=== PATIENT | male | born 1990 | race African-American/Black ===

== ENCOUNTER 2020-08-14 10:14 | Emergency (ER) | payer OTHER ==
[~2020-08-14] VITALS: Ht 175.3 cm; Wt 127.3 kg
[~2020-08-14 10:14] MED LIST: BENZ2TAB10 PO; CLON-595 PO; DIVA250T4 PO; GUAN1TAB22 PO; HALO10 PO; LITH300C3 PO; PALI39DI IM; TRAZ-252 PO
[2020-08-14] MEDS ORDERED: 0.9% SODIUM CHLORIDE 10 ML SYRINGE IVP PRN (12:30)
[2020-08-14 13:11] LABS: BASOPHILS % (AUTO) 0.4 % (0.0-2.0); EOSINOPHILS % (AUTO) 2.3 % (1.0-6.0); HEMATOCRIT 35.9 % (41-53); HEMOGLOBIN 11.5 g/dL (13.5-17.5); LYMPHOCYTES # (AUTO) 2.4 K/uL (1.0-4.8); LYMPHOCYTES % (AUTO) 25.5 % (22.0-44.0); MEAN CORPUSCULAR HGB CONC 32.1 G/dL (31.0-37.0); MEAN CORPUSCULAR VOLUME 93 fL (80-100); MONOCYTES # (AUTO) 1.4 K/uL (0.1-1.0); MONOCYTES % (AUTO) 14.6 % (2.0-9.0); NEUTROPHILS # (AUTO) 5.3 K/uL (1.8-7.7); NEUTROPHILS % (AUTO) 57.2 % (40.0-70.0); PLATELET COUNT (AUTO) 402 K/uL (150-450); RED BLOOD CELL COUNT(AUTO) 3.85 MIL/uL (4.50-5.90); RED CELL DISTRIBUTION WIDTH 14.1 % (11.5-14.5)
[2020-08-14 13:18] LABS: ANION GAP 5 mmol/L (8-16); CALCIUM, TOTAL 9.3 mg/dL (8.8-10.5); CARBON DIOXIDE 31 mmol/L (22-29); CHLORIDE 103 mmol/L (98-107); CREATININE 0.82 mg/dL (0.60-1.30); GLOMERULAR FILTR. RATE CALC > 60 mL/min (>60); GLUCOSE,RANDOM 88 mg/dL (70-110); SODIUM SERUM 139 mmol/L (136-145); UREA NITROGEN, BLOOD 10 mg/dL (7-18)
[2020-08-14 13:24] LABS: ALANINE AMINOTRANSFERASE 27 U/L (12-78); ALBUMIN 3.3 g/dL (3.4-5.0); ALKALINE PHOSPHATASE 60 U/L (46-116); ASPARTATE AMINOTRANSFERASE 16 U/L (15-37); BILIRUBIN,TOTAL 0.2 mg/dL (0.1-1.0); TOTAL PROTEIN, SERUM 8.1 g/dL (6.4-8.2)
[2020-08-14 15:58] LABS: COVID AG,FIA SOURCE NASOPHARYNGEAL
[2020-08-14] MEDS ORDERED: LORazepam 1 MG TABLET PO ONE (16:15)
[2020-08-14] MEDS ORDERED: PIPERACILLIN/TAZO 3.375 GM/D5W 50 ML IV ONE (16:15)
[2020-08-14 17:43] VITALS: BP 130/68
== END 2020-08-14 18:46 ==
LOC: EMS 10:31
DX: K04.7 Periapical abscess without sinus (principal); M86.9 Osteomyelitis, unspecified; F31.9 Bipolar disorder, unspecified; Z20.822 Contact with and (suspected) exposure to COVID-19
CPT/HCPCS: 36415; 70486; 80053; 83605; 85025; 87426; 96365; 99285; J2543

== ENCOUNTER 2022-05-26 14:45 | Inpatient (IN) | payer MEDICAID, OTHER ==
[~2022-05-26] VITALS: Ht 175.3 cm; Wt 135.8 kg
[~2022-05-26 14:45] MED LIST changes: -BENZ2TAB10 PO; +BENZ2TAB76 PO; -HALO10 PO; +HALO10TA21 PO
[2022-05-26] MEDS ORDERED: BENZ1TAB96 PO (14:57)
[2022-05-26] MEDS ORDERED: RISPC50 IM (14:57)
[2022-05-26] MEDS ORDERED: DOCU-385 PO (14:57)
[2022-05-26] MEDS ORDERED: BISM-171 PO (14:57)
[2022-05-26 15:58] LABS: COVID AG,FIA SOURCE NASOPHARYNGEAL
[2022-05-26 16:01] LABS: BASOPHILS % (AUTO) 0.5 % (0.0-2.0); EOSINOPHILS % (AUTO) 1.4 % (1.0-6.0); HEMATOCRIT 38.2 % (41-53); HEMOGLOBIN 12.3 g/dL (13.5-17.5); LYMPHOCYTES # (AUTO) 3.7 K/uL (1.0-4.8); LYMPHOCYTES % (AUTO) 51.8 % (22.0-44.0); MEAN CORPUSCULAR HEMOGLOBIN 30.1 pg (26.0-34.0); MEAN CORPUSCULAR HGB CONC 32.2 G/dL (31.0-37.0); MEAN CORPUSCULAR VOLUME 93 fL (80-100); MONOCYTES # (AUTO) 0.5 K/uL (0.1-1.0); MONOCYTES % (AUTO) 7.6 % (2.0-9.0); NEUTROPHILS # (AUTO) 2.8 K/uL (1.8-7.7); NEUTROPHILS % (AUTO) 38.7 % (40.0-70.0); PLATELET COUNT (AUTO) 211 K/uL (150-450); RED BLOOD CELL COUNT(AUTO) 4.09 MIL/uL (4.50-5.90); RED CELL DISTRIBUTION WIDTH 13.4 % (11.5-14.5)
[2022-05-26 16:11] LABS: ANION GAP 6 mmol/L (8-16); CALCIUM, TOTAL 9.6 mg/dL (8.8-10.5); CARBON DIOXIDE 32 mmol/L (22-29); CHLORIDE 103 mmol/L (98-107); CREATININE 0.81 mg/dL (0.60-1.30); GLOMERULAR FILTR. RATE CALC > 60 mL/min (>60); GLUCOSE,RANDOM 88 mg/dL (70-110); POTASSIUM 3.9 mmol/L (3.5-5.1); SODIUM SERUM 141 mmol/L (136-145); UREA NITROGEN, BLOOD 7 mg/dL (7-18)
[2022-05-26 16:17] LABS: ALANINE AMINOTRANSFERASE 20 U/L (12-78); ALBUMIN 4.1 g/dL (3.4-5.0); ALKALINE PHOSPHATASE 48 U/L (46-116); ASPARTATE AMINOTRANSFERASE 9 U/L (15-37); BILIRUBIN,TOTAL 0.2 mg/dL (0.1-1.0); TOTAL PROTEIN, SERUM 8.2 g/dL (6.4-8.2); VALPROIC ACID 76 mcg/mL (50-100)
[2022-05-26 16:18] LABS: LITHIUM 0.57 mmol/L (0.60-1.20)
[2022-05-26 16:20] LABS: AMPHET/METH SCREEN,URINE NEGATIVE (NEGATIVE); BARBITURATE SCREEN, URINE NEGATIVE (NEGATIVE); BENZODIAZEPINES SCREEN,URINE NEGATIVE (NEGATIVE); CANNABINOID SCREEN,URINE NEGATIVE (NEGATIVE); COCAINE SCREEN,URINE NEGATIVE (NEGATIVE); METHADONE SCREEN, URINE NEGATIVE (NEGATIVE); OPIATE SCREEN,URINE NEGATIVE (NEGATIVE); PHENCYCLIDINE SCREEN,URINE NEGATIVE (NEGATIVE)
[2022-05-26] MEDS ORDERED: OLANZapine 5 MG TABLET PO ONE (16:45)
[2022-05-26] MEDS ORDERED: LORazepam 1 MG TABLET PO ONE (16:45)
[2022-05-26] MEDS: LORazepam 2 MG TABLET PO PRN (19:52)
[2022-05-26] MEDS: HALOPERIDOL 5 MG TABLET PO PRN (19:52)
[2022-05-27 10:09] VITALS: BP 150/79
[2022-05-27] MEDS ORDERED: PETROLATUM,WHITE 28 GM JELLY TP PRN (13:30)
[2022-05-27] MEDS ORDERED: MAGNESIUM HYDROXIDE SUSPENSION 30 ML UDCUP PO PRN (13:30)
[2022-05-27] MEDS ORDERED: IBUPROFEN 600 MG TABLET PO PRN (13:30)
[2022-05-27] MEDS ORDERED: DOCUSATE SODIUM 100 MG CAPSULE PO PRN (13:30)
[2022-05-27] MEDS ORDERED: LOPERAMIDE HCL 2 MG CAPSULE PO PRN (13:30)
[2022-05-27] MEDS ORDERED: ACETAMINOPHEN 325 MG TABLET PO PRN (13:30)
[2022-05-27] MEDS ORDERED: BACITRACIN 28 GM OINTMENT TP PRN (13:30)
[2022-05-27] MEDS ORDERED: CloNIDine HCL 0.1 MG TABLET PO PRN (13:30)
[2022-05-27] MEDS ORDERED: OMEPRAZOLE 20 MG CAPSULE PO PRN (13:30)
[2022-05-27] MEDS ORDERED: BENZOCAINE/MENTHOL LOZENGE PO PRN (13:30)
[2022-05-27] MEDS ORDERED: MAG HYDROX/AL HYDROX/SIMETH ES 30 ML SUSPENSION UDCUP PO PRN (13:30)
[2022-05-27] MEDS ORDERED: ONDANSETRON HCL 4 MG TABLET PO PRN (13:30)
[2022-05-27] MEDS ORDERED: ALBUTEROL SULFATE HFA 90 MCG/PUFF 8 GM INHALER IH PRN (13:30)
[2022-05-27] MEDS ORDERED: DOCU-350 PO (14:19)
[2022-05-27] MEDS ORDERED: DIVA-112 PO (14:19)
[2022-05-27] MEDS ORDERED: TRAZ-257 PO (14:19)
[2022-05-27] MEDS: HALOPERIDOL 5 MG TABLET PO PRN (16:18)
[2022-05-27] MEDS: LORazepam 2 MG TABLET PO PRN (16:19)
[2022-05-27] MEDS: HALOPERIDOL 5 MG TABLET PO SCH (20:35)
[2022-05-27] MEDS: DIVALPROEX SODIUM 500 MG DR TABLET PO SCH (20:35)
[2022-05-27] MEDS: ClonazePAM 1 MG TABLET PO SCH (20:35)
[2022-05-27] MEDS: LITHIUM CARBONATE 300 MG CAPSULE PO SCH (20:35)
[2022-05-27] MEDS: GuanFACINE HCL 1 MG TABLET PO SCH (20:35)
[2022-05-27] MEDS: BENZTROPINE MESYLATE 2 MG TABLET PO SCH (20:35)
[2022-05-27] MEDS: ZOLPIDEM TARTRATE 10 MG TABLET PO PRN (20:35)
[2022-05-27 21:46] VITALS: BP 138/78
[2022-05-28] MEDS: ClonazePAM 1 MG TABLET PO SCH ×2 (08:08→20:06)
[2022-05-28] MEDS: GuanFACINE HCL 1 MG TABLET PO SCH ×2 (08:08→20:06)
[2022-05-28] MEDS: LITHIUM CARBONATE 300 MG CAPSULE PO SCH ×2 (08:08→20:04)
[2022-05-28] MEDS: LORazepam 2 MG TABLET PO PRN ×3 (08:08→20:17)
[2022-05-28] MEDS: DIVALPROEX SODIUM 500 MG DR TABLET PO SCH ×2 (08:09→20:05)
[2022-05-28 08:22] VITALS: BP 147/81
[2022-05-28] MEDS: HALOPERIDOL 5 MG TABLET PO PRN (16:13)
[2022-05-28 20:05] VITALS: BP 130/86
[2022-05-28] MEDS: BENZTROPINE MESYLATE 2 MG TABLET PO SCH (20:05)
[2022-05-28] MEDS: HALOPERIDOL 5 MG TABLET PO SCH (20:05)
[2022-05-28] MEDS: ZOLPIDEM TARTRATE 10 MG TABLET PO PRN (20:06)
[2022-05-29 08:05] VITALS: BP 147/90
[2022-05-29] MEDS: ClonazePAM 1 MG TABLET PO SCH ×2 (08:45→20:03)
[2022-05-29] MEDS: DIVALPROEX SODIUM 500 MG DR TABLET PO SCH ×2 (08:45→20:03)
[2022-05-29] MEDS: LITHIUM CARBONATE 300 MG CAPSULE PO SCH ×2 (08:45→20:02)
[2022-05-29] MEDS: GuanFACINE HCL 1 MG TABLET PO SCH ×2 (08:45→20:03)
[2022-05-29] MEDS: LORazepam 2 MG TABLET PO PRN ×2 (10:40→20:02)
[2022-05-29] MEDS: HALOPERIDOL 5 MG TABLET PO PRN (10:41)
[2022-05-29 16:11] VITALS: BP 152/87
[2022-05-29] MEDS: ZOLPIDEM TARTRATE 10 MG TABLET PO PRN (20:02)
[2022-05-29] MEDS: BENZTROPINE MESYLATE 2 MG TABLET PO SCH (20:02)
[2022-05-29] MEDS: HALOPERIDOL 5 MG TABLET PO SCH (20:03)
[2022-05-29 21:04] VITALS: BP 152/87
[2022-05-30] MEDS: LITHIUM CARBONATE 300 MG CAPSULE PO SCH ×2 (08:26→20:16)
[2022-05-30] MEDS: DIVALPROEX SODIUM 500 MG DR TABLET PO SCH ×2 (08:26→20:16)
[2022-05-30] MEDS: ClonazePAM 1 MG TABLET PO SCH ×2 (08:26→20:16)
[2022-05-30] MEDS: GuanFACINE HCL 1 MG TABLET PO SCH ×2 (08:26→20:15)
[2022-05-30 09:47] VITALS: BP 150/81
[2022-05-30] MEDS: LORazepam 2 MG TABLET PO PRN (16:07)
[2022-05-30 20:15] VITALS: BP 140/84
[2022-05-30] MEDS: BENZTROPINE MESYLATE 2 MG TABLET PO SCH (20:15)
[2022-05-30] MEDS: HALOPERIDOL 5 MG TABLET PO SCH (20:16)
[2022-05-30] MEDS: ZOLPIDEM TARTRATE 10 MG TABLET PO PRN (20:29)
[2022-05-30] MEDS ORDERED: DiphenhydrAMINE HCL 50 MG/ML VIAL ONE (22:22)
[2022-05-30] MEDS ORDERED: LORazepam 2 MG/ML VIAL ONE (22:22)
[2022-05-30] MEDS ORDERED: HALOPERIDOL LACTATE 5 MG/ML VIAL ONE (22:22)
[2022-05-30] MEDS ORDERED: HALOPERIDOL LACTATE 5 MG/ML VIAL IM ONE (22:30)
[2022-05-30] MEDS ORDERED: DiphenhydrAMINE HCL 50 MG/ML VIAL IM ONE (22:30)
[2022-05-30] MEDS ORDERED: LORazepam 2 MG/ML VIAL IM ONE (22:30)
[2022-05-31 07:55] LABS: CHOL/HDL RATIO 2.5 (4.2-7.3)
[2022-05-31 07:56] LABS: LITHIUM 0.31 mmol/L (0.60-1.20)
[2022-05-31] MEDS: GuanFACINE HCL 1 MG TABLET PO SCH ×2 (08:03→20:04)
[2022-05-31] MEDS: ClonazePAM 1 MG TABLET PO SCH ×2 (08:03→20:04)
[2022-05-31] MEDS: DIVALPROEX SODIUM 500 MG DR TABLET PO SCH ×2 (08:03→20:03)
[2022-05-31] MEDS: LITHIUM CARBONATE 300 MG CAPSULE PO SCH ×2 (08:03→20:04)
[2022-05-31 08:09] VITALS: BP 142/84
[2022-05-31] MEDS: LORazepam 2 MG TABLET PO PRN ×2 (10:48→14:56)
[2022-05-31] MEDS: HALOPERIDOL 5 MG TABLET PO PRN ×2 (10:48→14:56)
[2022-05-31] MEDS: HALOPERIDOL 5 MG TABLET PO SCH (20:03)
[2022-05-31] MEDS: BENZTROPINE MESYLATE 2 MG TABLET PO SCH (20:04)
[2022-05-31 20:07] VITALS: BP 160/82
[2022-06-01] MEDS: ZOLPIDEM TARTRATE 10 MG TABLET PO PRN ×2 (02:16→21:12)
[2022-06-01] MEDS: LITHIUM CARBONATE 300 MG CAPSULE PO SCH ×2 (08:03→20:16)
[2022-06-01] MEDS: GuanFACINE HCL 1 MG TABLET PO SCH ×2 (08:03→20:15)
[2022-06-01] MEDS: DIVALPROEX SODIUM 500 MG DR TABLET PO SCH ×2 (08:03→20:16)
[2022-06-01] MEDS: ClonazePAM 1 MG TABLET PO SCH ×2 (08:03→20:16)
[2022-06-01] MEDS: HALOPERIDOL 5 MG TABLET PO PRN ×3 (08:04→17:18)
[2022-06-01] MEDS: LORazepam 2 MG TABLET PO PRN ×3 (08:04→17:18)
[2022-06-01 08:06] VITALS: BP 133/83
[2022-06-01] MEDS: HALOPERIDOL 5 MG TABLET PO SCH (20:15)
[2022-06-01 20:36] VITALS: BP 139/81
[2022-06-01] MEDS: BENZTROPINE MESYLATE 2 MG TABLET PO SCH (21:12)
[2022-06-01] MEDS ORDERED: LORazepam 2 MG/ML VIAL ONE (22:01)
[2022-06-01] MEDS ORDERED: HALOPERIDOL LACTATE 5 MG/ML VIAL ONE (22:02)
[2022-06-01] MEDS ORDERED: DiphenhydrAMINE HCL 50 MG/ML VIAL ONE (22:02)
[2022-06-01] MEDS ORDERED: DiphenhydrAMINE HCL 50 MG/ML VIAL IM ONE (22:15)
[2022-06-01] MEDS ORDERED: LORazepam 2 MG/ML VIAL IM ONE (22:15)
[2022-06-01] MEDS ORDERED: HALOPERIDOL LACTATE 5 MG/ML VIAL IM ONE (22:15)
[2022-06-02 08:06] VITALS: BP 147/96
[2022-06-02] MEDS: LITHIUM CARBONATE 300 MG CAPSULE PO SCH ×2 (08:22→20:06)
[2022-06-02] MEDS: DIVALPROEX SODIUM 500 MG DR TABLET PO SCH ×2 (08:23→20:06)
[2022-06-02] MEDS: GuanFACINE HCL 1 MG TABLET PO SCH ×2 (08:23→20:23)
[2022-06-02] MEDS: ClonazePAM 1 MG TABLET PO SCH ×2 (08:23→20:07)
[2022-06-02] MEDS ORDERED: CLON-595 PO (09:29)
[2022-06-02] MEDS ORDERED: LITH300C3 PO (09:29)
[2022-06-02] MEDS ORDERED: GUAN1TAB2 PO (09:29)
[2022-06-02] MEDS ORDERED: DIVA-112 PO (09:29)
[2022-06-02] MEDS ORDERED: HALO5TAB23 PO (09:29)
[2022-06-02] MEDS ORDERED: BENZ2TAB76 PO (09:29)
[2022-06-02] MEDS: LORazepam 2 MG TABLET PO PRN ×2 (10:56→19:19)
[2022-06-02] MEDS: HALOPERIDOL 5 MG TABLET PO SCH (20:06)
[2022-06-02] MEDS: BENZTROPINE MESYLATE 2 MG TABLET PO SCH (20:07)
[2022-06-02 20:10] VITALS: BP 138/82
[2022-06-02] MEDS: ZOLPIDEM TARTRATE 10 MG TABLET PO PRN (21:04)
[2022-06-03 06:21] LABS: GLUCOMETER DEV NAME(LOC) POC.BV
[2022-06-03] MEDS: ClonazePAM 1 MG TABLET PO SCH (08:00)
[2022-06-03] MEDS: DIVALPROEX SODIUM 500 MG DR TABLET PO SCH (08:00)
[2022-06-03] MEDS: LITHIUM CARBONATE 300 MG CAPSULE PO SCH (08:00)
[2022-06-03] MEDS: GuanFACINE HCL 1 MG TABLET PO SCH (08:00)
[2022-06-03 09:48] VITALS: BP 142/90
== END 2022-06-03 10:45 | disposition home or self-care (01) | DRG 750 ==
LOC: EMS 15:08 → B3A 05-27 08:37
PROVIDERS: ADMIT Psychiatry & Neurology Psychiatry; ATTEND Psychiatry & Neurology Psychiatry
DX: F25.9 Schizoaffective disorder, unspecified (principal); F79 Unspecified intellectual disabilities; E66.9 Obesity, unspecified; Z68.41 Body mass index [BMI] 40.0-44.9, adult; F41.9 Anxiety disorder, unspecified; G47.00 Insomnia, unspecified; J45.909 Unspecified asthma, uncomplicated; K59.00 Constipation, unspecified; Z20.822 Contact with and (suspected) exposure to COVID-19
CPT/HCPCS: 80053; 80061; 80164; 80178; 80307; 85025; 99285; G0480; J1200; J1630; J2060

== ENCOUNTER 2022-07-13 14:29 | Inpatient (IN) | payer MEDICAID, OTHER ==
[~2022-07-13] VITALS: Ht 172.7 cm; Wt 137.7 kg
[~2022-07-13 14:29] MED LIST changes: +BENZ2TAB71 PO; -BENZ2TAB76 PO; +DIVA-112 PO; -DIVA250T4 PO; +GUAN1TAB2 PO; -HALO10TA21 PO; +HALO5TAB23 PO; -PALI39DI IM; -TRAZ-252 PO
[2022-07-13 15:31] LABS: COVID AG,FIA SOURCE NASOPHARYNGEAL
[2022-07-13 15:52] LABS: BASOPHILS % (AUTO) 0.6 % (0.0-2.0); EOSINOPHILS % (AUTO) 1.1 % (1.0-6.0); HEMATOCRIT 39.7 % (41-53); HEMOGLOBIN 12.8 g/dL (13.5-17.5); LYMPHOCYTES # (AUTO) 3.9 K/uL (1.0-4.8); LYMPHOCYTES % (AUTO) 47.7 % (22.0-44.0); MEAN CORPUSCULAR HEMOGLOBIN 30.7 pg (26.0-34.0); MEAN CORPUSCULAR HGB CONC 32.3 G/dL (31.0-37.0); MEAN CORPUSCULAR VOLUME 95 fL (80-100); MONOCYTES # (AUTO) 0.5 K/uL (0.1-1.0); MONOCYTES % (AUTO) 6.6 % (2.0-9.0); NEUTROPHILS # (AUTO) 3.6 K/uL (1.8-7.7); PLATELET COUNT (AUTO) 239 K/uL (150-450); RED BLOOD CELL COUNT(AUTO) 4.17 MIL/uL (4.50-5.90); RED CELL DISTRIBUTION WIDTH 14.2 % (11.5-14.5)
[2022-07-13 15:55] LABS: AMPHET/METH SCREEN,URINE NEGATIVE (NEGATIVE); BARBITURATE SCREEN, URINE NEGATIVE (NEGATIVE); BENZODIAZEPINES SCREEN,URINE NEGATIVE (NEGATIVE); CANNABINOID SCREEN,URINE NEGATIVE (NEGATIVE); COCAINE SCREEN,URINE NEGATIVE (NEGATIVE); METHADONE SCREEN, URINE NEGATIVE (NEGATIVE); OPIATE SCREEN,URINE NEGATIVE (NEGATIVE); PHENCYCLIDINE SCREEN,URINE NEGATIVE (NEGATIVE)
[2022-07-13 16:06] LABS: LITHIUM 0.47 mmol/L (0.60-1.20)
[2022-07-13 16:12] LABS: ANION GAP 8 mmol/L (8-16); CALCIUM, TOTAL 9.4 mg/dL (8.8-10.5); CARBON DIOXIDE 30 mmol/L (22-29); CHLORIDE 100 mmol/L (98-107); CREATININE 0.76 mg/dL (0.60-1.30); GLOMERULAR FILTR. RATE CALC > 60 mL/min (>60); GLUCOSE,RANDOM 83 mg/dL (70-110); POTASSIUM 3.7 mmol/L (3.5-5.1); SODIUM SERUM 138 mmol/L (136-145)
[2022-07-13 16:20] LABS: ALANINE AMINOTRANSFERASE 13 U/L (12-78); ALKALINE PHOSPHATASE 47 U/L (46-116); ASPARTATE AMINOTRANSFERASE 9 U/L (15-37); BILIRUBIN,TOTAL 0.3 mg/dL (0.1-1.0); TOTAL PROTEIN, SERUM 8.5 g/dL (6.4-8.2); VALPROIC ACID 87 mcg/mL (50-100)
[2022-07-13 23:33] VITALS: BP 141/92
[2022-07-14] MEDS: LORazepam 2 MG TABLET PO PRN ×4 (00:37→21:00)
[2022-07-14] MEDS: ZOLPIDEM TARTRATE 10 MG TABLET PO PRN ×2 (00:37→20:08)
[2022-07-14] MEDS ORDERED: PNEUMOCOCCAL VACCINE POLYVALENT 0.5 ML VIAL [PPSV23] IM. ONE (01:45)
[2022-07-14] MEDS ORDERED: LOPERAMIDE HCL 2 MG CAPSULE PO PRN (05:45)
[2022-07-14] MEDS ORDERED: CloNIDine HCL 0.1 MG TABLET PO PRN (05:45)
[2022-07-14] MEDS ORDERED: DOCUSATE SODIUM 100 MG CAPSULE PO PRN (05:45)
[2022-07-14] MEDS ORDERED: ALBUTEROL SULFATE HFA 90 MCG/PUFF 8 GM INHALER IH PRN (05:45)
[2022-07-14] MEDS ORDERED: OMEPRAZOLE 20 MG CAPSULE PO PRN (05:45)
[2022-07-14] MEDS ORDERED: MAGNESIUM HYDROXIDE SUSPENSION 30 ML UDCUP PO PRN (05:45)
[2022-07-14] MEDS ORDERED: ONDANSETRON HCL 4 MG TABLET PO PRN (05:45)
[2022-07-14] MEDS ORDERED: MAG HYDROX/AL HYDROX/SIMETH ES 30 ML SUSPENSION UDCUP PO PRN (05:45)
[2022-07-14] MEDS ORDERED: IBUPROFEN 600 MG TABLET PO PRN (05:45)
[2022-07-14] MEDS ORDERED: PETROLATUM,WHITE 28 GM JELLY TP PRN (05:45)
[2022-07-14] MEDS ORDERED: ACETAMINOPHEN 325 MG TABLET PO PRN (05:45)
[2022-07-14] MEDS ORDERED: BACITRACIN 28 GM OINTMENT TP PRN (05:45)
[2022-07-14 08:24] VITALS: BP 150/93
[2022-07-14] MEDS: HALOPERIDOL 5 MG TABLET PO PRN ×2 (08:30→16:56)
[2022-07-14] MEDS ORDERED: LORazepam 2 MG/ML VIAL ONE (09:31)
[2022-07-14] MEDS ORDERED: HALOPERIDOL LACTATE 5 MG/ML VIAL ONE (09:32)
[2022-07-14] MEDS ORDERED: DiphenhydrAMINE HCL 50 MG/ML VIAL ONE (09:32)
[2022-07-14] MEDS ORDERED: HALOPERIDOL LACTATE 5 MG/ML VIAL IM ONE (09:45)
[2022-07-14] MEDS ORDERED: LORazepam 2 MG/ML VIAL IM ONE (09:45)
[2022-07-14] MEDS ORDERED: DiphenhydrAMINE HCL 50 MG/ML VIAL IM ONE (09:45)
[2022-07-14] MEDS: ClonazePAM 1 MG TABLET PO SCH (16:55)
[2022-07-14] MEDS: BENZTROPINE MESYLATE 1 MG TABLET PO SCH (16:55)
[2022-07-14 20:03] VITALS: BP 134/83
[2022-07-14] MEDS: LITHIUM CARBONATE 300 MG CAPSULE PO SCH (20:07)
[2022-07-14] MEDS: DIVALPROEX SODIUM 500 MG DR TABLET PO SCH (20:07)
[2022-07-14] MEDS: TraZODone HCL 100 MG TABLET PO SCH (20:08)
[2022-07-14] MEDS: HALOPERIDOL 5 MG TABLET PO SCH (20:08)
[2022-07-14] MEDS: GuanFACINE HCL 1 MG TABLET PO SCH (21:00)
[2022-07-15 08:00] VITALS: BP 150/94
[2022-07-15] MEDS: ClonazePAM 1 MG TABLET PO SCH ×2 (08:02→16:35)
[2022-07-15] MEDS: GuanFACINE HCL 1 MG TABLET PO SCH ×2 (08:02→20:15)
[2022-07-15] MEDS: LITHIUM CARBONATE 300 MG CAPSULE PO SCH ×2 (08:02→20:15)
[2022-07-15] MEDS: BENZTROPINE MESYLATE 1 MG TABLET PO SCH ×2 (08:02→16:35)
[2022-07-15] MEDS: DIVALPROEX SODIUM 500 MG DR TABLET PO SCH ×2 (08:03→20:15)
[2022-07-15] MEDS ORDERED: RisperiDONE MICROSPHERES 50 MG/2 ML SYRINGE IM ONE (09:00)
[2022-07-15] MEDS: LORazepam 2 MG TABLET PO PRN ×2 (16:35→20:38)
[2022-07-15] MEDS: HALOPERIDOL 5 MG TABLET PO PRN (16:35)
[2022-07-15 17:10] VITALS: BP 140/95
[2022-07-15 20:08] VITALS: BP 130/94
[2022-07-15] MEDS: ZOLPIDEM TARTRATE 10 MG TABLET PO PRN (20:15)
[2022-07-15] MEDS: TraZODone HCL 100 MG TABLET PO SCH (20:15)
[2022-07-15] MEDS: HALOPERIDOL 5 MG TABLET PO SCH (20:15)
[2022-07-16 08:00] VITALS: BP 136/88
[2022-07-16] MEDS: ClonazePAM 1 MG TABLET PO SCH ×2 (08:00→16:04)
[2022-07-16] MEDS: GuanFACINE HCL 1 MG TABLET PO SCH ×2 (08:00→20:47)
[2022-07-16] MEDS: DIVALPROEX SODIUM 500 MG DR TABLET PO SCH ×2 (08:00→20:47)
[2022-07-16] MEDS: LITHIUM CARBONATE 300 MG CAPSULE PO SCH ×2 (08:00→20:47)
[2022-07-16] MEDS: BENZTROPINE MESYLATE 1 MG TABLET PO SCH ×2 (08:00→16:04)
[2022-07-16] MEDS ORDERED: TRAZ-257 PO (17:31)
[2022-07-16] MEDS ORDERED: DOCU-350 PO (17:31)
[2022-07-16] MEDS ORDERED: RISPC50 IM (17:31)
[2022-07-16] MEDS: HALOPERIDOL 5 MG TABLET PO SCH (20:48)
[2022-07-16] MEDS: TraZODone HCL 100 MG TABLET PO SCH (20:48)
[2022-07-17 01:30] VITALS: BP 132/79
[2022-07-17] MEDS: GuanFACINE HCL 1 MG TABLET PO SCH ×2 (08:01→20:42)
[2022-07-17] MEDS: ClonazePAM 1 MG TABLET PO SCH ×2 (08:01→16:13)
[2022-07-17] MEDS: LITHIUM CARBONATE 300 MG CAPSULE PO SCH ×2 (08:01→20:41)
[2022-07-17] MEDS: DIVALPROEX SODIUM 500 MG DR TABLET PO SCH ×2 (08:01→20:41)
[2022-07-17] MEDS: BENZTROPINE MESYLATE 1 MG TABLET PO SCH ×2 (08:01→16:13)
[2022-07-17 08:56] VITALS: BP 120/80
[2022-07-17 20:13] VITALS: BP 146/90
[2022-07-17] MEDS: LORazepam 2 MG TABLET PO PRN (20:40)
[2022-07-17] MEDS: TraZODone HCL 100 MG TABLET PO SCH (20:41)
[2022-07-17] MEDS: HALOPERIDOL 5 MG TABLET PO SCH (20:41)
[2022-07-18 08:00] LABS: LITHIUM 0.33 mmol/L (0.60-1.20)
[2022-07-18] MEDS: GuanFACINE HCL 1 MG TABLET PO SCH ×2 (08:01→20:30)
[2022-07-18] MEDS: LITHIUM CARBONATE 300 MG CAPSULE PO SCH ×2 (08:01→20:30)
[2022-07-18] MEDS: BENZTROPINE MESYLATE 1 MG TABLET PO SCH ×2 (08:01→16:09)
[2022-07-18] MEDS: ClonazePAM 1 MG TABLET PO SCH ×2 (08:02→16:10)
[2022-07-18] MEDS: DIVALPROEX SODIUM 500 MG DR TABLET PO SCH ×2 (08:02→20:30)
[2022-07-18 08:12] VITALS: BP 121/95
[2022-07-18] MEDS: LORazepam 2 MG TABLET PO PRN ×2 (16:10→20:30)
[2022-07-18 20:22] VITALS: BP 143/87
[2022-07-18] MEDS: HALOPERIDOL 5 MG TABLET PO SCH (20:30)
[2022-07-18] MEDS: TraZODone HCL 100 MG TABLET PO SCH (20:30)
[2022-07-18] MEDS: ZOLPIDEM TARTRATE 10 MG TABLET PO PRN (20:30)
[2022-07-18] MEDS ORDERED: LITH300C3 PO (20:52)
[2022-07-18] MEDS ORDERED: CLON-595 PO (20:52)
[2022-07-18] MEDS ORDERED: TRAZ-257 PO (20:52)
[2022-07-18] MEDS ORDERED: HALO5TAB23 PO (20:52)
[2022-07-18] MEDS ORDERED: GUAN1TAB2 PO (20:52)
[2022-07-18] MEDS ORDERED: DIVA-112 PO (20:52)
[2022-07-18] MEDS ORDERED: BENZ1TAB84 PO (20:52)
[2022-07-19 08:03] VITALS: BP 133/85
[2022-07-19] MEDS: LITHIUM CARBONATE 300 MG CAPSULE PO SCH (08:07)
[2022-07-19] MEDS: DIVALPROEX SODIUM 500 MG DR TABLET PO SCH (08:07)
[2022-07-19] MEDS: GuanFACINE HCL 1 MG TABLET PO SCH (08:07)
[2022-07-19] MEDS: ClonazePAM 1 MG TABLET PO SCH (08:07)
[2022-07-19] MEDS: BENZTROPINE MESYLATE 1 MG TABLET PO SCH (08:07)
[2022-07-29] MEDS ORDERED: RisperiDONE MICROSPHERES 50 MG/2 ML SYRINGE IM ONE (09:00)
== END 2022-07-19 10:50 | disposition home or self-care (01) | DRG 750 ==
LOC: EMS 14:31 → B3A 18:42
PROVIDERS: ADMIT Psychiatry & Neurology Psychiatry; ATTEND Psychiatry & Neurology Psychiatry
DX: F25.0 Schizoaffective disorder, bipolar type (principal); E66.01 Morbid (severe) obesity due to excess calories; F41.9 Anxiety disorder, unspecified; J45.909 Unspecified asthma, uncomplicated; R62.50 Unspecified lack of expected normal physiological development in childhood; Z20.822 Contact with and (suspected) exposure to COVID-19; G47.00 Insomnia, unspecified; K59.00 Constipation, unspecified; Z88.8 Allergy status to other drugs, medicaments and biological substances; Z79.899 Other long term (current) drug therapy; Z68.42 Body mass index [BMI] 45.0-49.9, adult
CPT/HCPCS: 80053; 80164; 80178; 80307; 85025; 99285; G0480; J1200; J1630; J2060; J2794

== ENCOUNTER 2022-07-26 11:14 | Inpatient (IN) | payer MEDICAID, OTHER ==
[~2022-07-26] VITALS: Ht 175.3 cm; Wt 137.9 kg
[~2022-07-26 11:14] MED LIST changes: +BENZ1TAB84 PO; +DOCU-350 PO; -GUAN1TAB22 PO; +RISPC50 IM; +TRAZ-257 PO
[2022-07-26 12:55] LABS: AMPHET/METH SCREEN,URINE NEGATIVE (NEGATIVE); BARBITURATE SCREEN, URINE NEGATIVE (NEGATIVE); BENZODIAZEPINES SCREEN,URINE NEGATIVE (NEGATIVE); CANNABINOID SCREEN,URINE NEGATIVE (NEGATIVE); COCAINE SCREEN,URINE NEGATIVE (NEGATIVE); METHADONE SCREEN, URINE NEGATIVE (NEGATIVE); OPIATE SCREEN,URINE NEGATIVE (NEGATIVE); PHENCYCLIDINE SCREEN,URINE NEGATIVE (NEGATIVE)
[2022-07-26 13:06] LABS: BASOPHILS % (AUTO) 0.5 % (0.0-2.0); EOSINOPHILS % (AUTO) 1.5 % (1.0-6.0); HEMATOCRIT 38.1 % (41-53); HEMOGLOBIN 12.4 g/dL (13.5-17.5); LYMPHOCYTES # (AUTO) 2.7 K/uL (1.0-4.8); LYMPHOCYTES % (AUTO) 33.7 % (22.0-44.0); MEAN CORPUSCULAR HEMOGLOBIN 31.1 pg (26.0-34.0); MEAN CORPUSCULAR HGB CONC 32.7 G/dL (31.0-37.0); MEAN CORPUSCULAR VOLUME 95 fL (80-100); MONOCYTES # (AUTO) 0.6 K/uL (0.1-1.0); MONOCYTES % (AUTO) 7.1 % (2.0-9.0); NEUTROPHILS # (AUTO) 4.5 K/uL (1.8-7.7); NEUTROPHILS % (AUTO) 57.2 % (40.0-70.0); PLATELET COUNT (AUTO) 216 K/uL (150-450); RED CELL DISTRIBUTION WIDTH 13.8 % (11.5-14.5)
[2022-07-26 13:17] LABS: ANION GAP 3 mmol/L (8-16); CALCIUM, TOTAL 9.9 mg/dL (8.8-10.5); CARBON DIOXIDE 35 mmol/L (22-29); CHLORIDE 103 mmol/L (98-107); CREATININE 0.86 mg/dL (0.60-1.30); GLOMERULAR FILTR. RATE CALC > 60 mL/min (>60); GLUCOSE,RANDOM 87 mg/dL (70-110); POTASSIUM 4.1 mmol/L (3.5-5.1); SODIUM SERUM 141 mmol/L (136-145)
[2022-07-26 13:23] LABS: ALANINE AMINOTRANSFERASE 15 U/L (12-78); ALKALINE PHOSPHATASE 49 U/L (46-116); ASPARTATE AMINOTRANSFERASE 10 U/L (15-37); BILIRUBIN,TOTAL 0.2 mg/dL (0.1-1.0); TOTAL PROTEIN, SERUM 8.2 g/dL (6.4-8.2)
[2022-07-26 14:34] LABS: COVID AG,FIA SOURCE NASAL SWAB
[2022-07-26] MEDS ORDERED: HALOPERIDOL 5 MG TABLET PO PRN (16:45)
[2022-07-26] MEDS ORDERED: HALO5TAB2 PO (17:06)
[2022-07-26] MEDS: HALOPERIDOL 5 MG TABLET PO SCH (21:30)
[2022-07-26] MEDS: LITHIUM CARBONATE 300 MG CAPSULE PO SCH (21:30)
[2022-07-26] MEDS: ClonazePAM 1 MG TABLET PO SCH (21:31)
[2022-07-26] MEDS: BENZTROPINE MESYLATE 2 MG TABLET PO SCH (21:31)
[2022-07-26] MEDS: DIVALPROEX SODIUM 500 MG DR TABLET PO SCH (21:31)
[2022-07-27] MEDS: ClonazePAM 1 MG TABLET PO SCH ×2 (09:25→20:31)
[2022-07-27] MEDS: DIVALPROEX SODIUM 500 MG DR TABLET PO SCH ×2 (09:25→20:30)
[2022-07-27] MEDS: LITHIUM CARBONATE 300 MG CAPSULE PO SCH ×2 (09:25→20:31)
[2022-07-27] MEDS: LORazepam 2 MG TABLET PO PRN (10:08)
[2022-07-27 12:14] VITALS: BP 144/91; PULSE 83; RESP 18; TEMP 97.6; O2SAT 96
[2022-07-27] MEDS ORDERED: PNEUMOCOCCAL VACCINE POLYVALENT 0.5 ML VIAL [PPSV23] IM. ONE (12:30)
[2022-07-27] MEDS ORDERED: DOCUSATE SODIUM 100 MG CAPSULE PO PRN (19:00)
[2022-07-27] MEDS ORDERED: OMEPRAZOLE 20 MG CAPSULE PO PRN (19:00)
[2022-07-27] MEDS ORDERED: PETROLATUM,WHITE 28 GM JELLY TP PRN (19:00)
[2022-07-27] MEDS ORDERED: ALBUTEROL SULFATE HFA 90 MCG/PUFF 8 GM INHALER IH PRN (19:00)
[2022-07-27] MEDS ORDERED: CloNIDine HCL 0.1 MG TABLET PO PRN (19:00)
[2022-07-27] MEDS ORDERED: IBUPROFEN 600 MG TABLET PO PRN (19:00)
[2022-07-27] MEDS ORDERED: LOPERAMIDE HCL 2 MG CAPSULE PO PRN (19:00)
[2022-07-27] MEDS ORDERED: MAGNESIUM HYDROXIDE SUSPENSION 30 ML UDCUP PO PRN (19:00)
[2022-07-27] MEDS ORDERED: ONDANSETRON HCL 4 MG TABLET PO PRN (19:00)
[2022-07-27] MEDS ORDERED: ACETAMINOPHEN 325 MG TABLET PO PRN (19:00)
[2022-07-27] MEDS ORDERED: BACITRACIN 28 GM OINTMENT TP PRN (19:00)
[2022-07-27] MEDS ORDERED: MAG HYDROX/AL HYDROX/SIMETH ES 30 ML SUSPENSION UDCUP PO PRN (19:00)
[2022-07-27] MEDS: HALOPERIDOL 5 MG TABLET PO SCH (20:30)
[2022-07-27] MEDS: BENZTROPINE MESYLATE 2 MG TABLET PO SCH (20:31)
[2022-07-27 21:09] VITALS: BP 144/87; PULSE 93; RESP 20; TEMP 97.9; O2SAT 94
[2022-07-27] MEDS: ZOLPIDEM TARTRATE 10 MG TABLET PO PRN (21:38)
[2022-07-28] MEDS: DIVALPROEX SODIUM 500 MG DR TABLET PO SCH ×2 (08:17→20:26)
[2022-07-28] MEDS: ClonazePAM 1 MG TABLET PO SCH ×2 (08:17→20:27)
[2022-07-28 08:18] VITALS: BP 144/81; PULSE 83; RESP 19; TEMP 97.5; O2SAT 98
[2022-07-28] MEDS: LITHIUM CARBONATE 300 MG CAPSULE PO SCH ×2 (08:18→20:26)
[2022-07-28 20:22] VITALS: BP 141/82; PULSE 62; RESP 18; TEMP 97.1; O2SAT 97
[2022-07-28] MEDS: HALOPERIDOL 5 MG TABLET PO SCH (20:26)
[2022-07-28] MEDS: BENZTROPINE MESYLATE 2 MG TABLET PO SCH (20:28)
[2022-07-28] MEDS: ZOLPIDEM TARTRATE 10 MG TABLET PO PRN (21:55)
[2022-07-29] MEDS ORDERED: RisperiDONE MICROSPHERES 50 MG/2 ML SYRINGE IM SCH (09:00)
[2022-07-29] MEDS: DIVALPROEX SODIUM 500 MG DR TABLET PO SCH ×2 (09:07→20:32)
[2022-07-29] MEDS: LITHIUM CARBONATE 300 MG CAPSULE PO SCH ×2 (09:07→20:33)
[2022-07-29] MEDS: ClonazePAM 1 MG TABLET PO SCH ×2 (09:07→20:33)
[2022-07-29 10:01] VITALS: BP 141/85; PULSE 75; RESP 16; TEMP 97.2; O2SAT 95
[2022-07-29] MEDS: BENZTROPINE MESYLATE 2 MG TABLET PO SCH (20:32)
[2022-07-29] MEDS: HALOPERIDOL 5 MG TABLET PO SCH (20:33)
[2022-07-29 20:56] VITALS: BP 119/80; PULSE 101; RESP 18; TEMP 97.7; O2SAT 97
[2022-07-29] MEDS: ZOLPIDEM TARTRATE 10 MG TABLET PO PRN (21:56)
[2022-07-30] MEDS: LITHIUM CARBONATE 300 MG CAPSULE PO SCH ×2 (08:13→20:54)
[2022-07-30] MEDS: ClonazePAM 1 MG TABLET PO SCH ×2 (08:13→20:54)
[2022-07-30] MEDS: DIVALPROEX SODIUM 500 MG DR TABLET PO SCH ×2 (08:13→20:53)
[2022-07-30 09:06] VITALS: BP 149/104; PULSE 81; RESP 18; TEMP 97.5; O2SAT 98
[2022-07-30] MEDS: LORazepam 2 MG TABLET PO PRN (12:48)
[2022-07-30 20:02] VITALS: BP 154/100; PULSE 93; RESP 18; TEMP 97.6; O2SAT 95
[2022-07-30] MEDS: BENZTROPINE MESYLATE 2 MG TABLET PO SCH (20:53)
[2022-07-30] MEDS: HALOPERIDOL 5 MG TABLET PO SCH (20:54)
[2022-07-31 07:11] LABS: LITHIUM 0.45 mmol/L (0.60-1.20)
[2022-07-31] MEDS: ClonazePAM 1 MG TABLET PO SCH ×2 (07:52→20:20)
[2022-07-31] MEDS: LITHIUM CARBONATE 300 MG CAPSULE PO SCH ×2 (07:52→20:19)
[2022-07-31] MEDS: DIVALPROEX SODIUM 500 MG DR TABLET PO SCH ×2 (07:53→20:20)
[2022-07-31 08:07] VITALS: BP 124/76; PULSE 85; RESP 18; TEMP 98.2; O2SAT 93
[2022-07-31 20:04] VITALS: BP 136/67; PULSE 91; RESP 17; TEMP 97.3; O2SAT 95
[2022-07-31] MEDS: HALOPERIDOL 5 MG TABLET PO SCH (20:20)
[2022-07-31] MEDS: BENZTROPINE MESYLATE 2 MG TABLET PO SCH (20:20)
[2022-07-31] MEDS: LORazepam 2 MG TABLET PO PRN (22:15)
[2022-07-31] MEDS: ZOLPIDEM TARTRATE 10 MG TABLET PO PRN (22:15)
[2022-08-01 08:05] VITALS: BP 127/84; PULSE 84; RESP 17; TEMP 97.7; O2SAT 96
[2022-08-01] MEDS: ClonazePAM 1 MG TABLET PO SCH ×2 (08:17→20:37)
[2022-08-01] MEDS: LITHIUM CARBONATE 300 MG CAPSULE PO SCH ×3 (08:18→17:08)
[2022-08-01] MEDS: DIVALPROEX SODIUM 500 MG DR TABLET PO SCH ×2 (08:18→20:37)
[2022-08-01 20:26] VITALS: RESP 18
[2022-08-01] MEDS: HALOPERIDOL 5 MG TABLET PO SCH (20:36)
[2022-08-01] MEDS: BENZTROPINE MESYLATE 2 MG TABLET PO SCH (20:37)
[2022-08-01] MEDS: LORazepam 2 MG TABLET PO PRN (20:46)
[2022-08-01] MEDS: ZOLPIDEM TARTRATE 10 MG TABLET PO PRN (23:17)
[2022-08-02 08:04] VITALS: BP 138/89; PULSE 88; RESP 19; TEMP 97.6; O2SAT 96
[2022-08-02] MEDS: LITHIUM CARBONATE 300 MG CAPSULE PO SCH ×3 (08:23→16:25)
[2022-08-02] MEDS: DIVALPROEX SODIUM 500 MG DR TABLET PO SCH ×2 (08:23→20:45)
[2022-08-02] MEDS: ClonazePAM 1 MG TABLET PO SCH ×2 (08:23→20:45)
[2022-08-02] MEDS: HALOPERIDOL 5 MG TABLET PO SCH (20:44)
[2022-08-02] MEDS: BENZTROPINE MESYLATE 2 MG TABLET PO SCH (20:44)
[2022-08-02 22:04] VITALS: RESP 18
[2022-08-02] MEDS: LORazepam 2 MG TABLET PO PRN (22:22)
[2022-08-02] MEDS: ZOLPIDEM TARTRATE 10 MG TABLET PO PRN (22:22)
[2022-08-03] MEDS: LITHIUM CARBONATE 300 MG CAPSULE PO SCH ×3 (07:49→16:43)
[2022-08-03] MEDS: DIVALPROEX SODIUM 500 MG DR TABLET PO SCH (07:49)
[2022-08-03] MEDS: ClonazePAM 1 MG TABLET PO SCH (07:49)
[2022-08-03 08:01] VITALS: BP 139/77; PULSE 90; RESP 17; TEMP 98
[2022-08-03 08:20] VITALS: BP 139/77; PULSE 90; RESP 17; TEMP 98; O2SAT 95
== END 2022-08-03 14:50 | disposition home or self-care (01) | DRG 750 ==
LOC: EMS 11:18 → 3EC 07-27 11:03
PROVIDERS: ADMIT Psychiatry & Neurology Psychiatry; ATTEND Psychiatry & Neurology Psychiatry
DX: F25.0 Schizoaffective disorder, bipolar type (principal); F79 Unspecified intellectual disabilities; E66.01 Morbid (severe) obesity due to excess calories; F41.9 Anxiety disorder, unspecified; Z20.822 Contact with and (suspected) exposure to COVID-19; G47.00 Insomnia, unspecified; J45.909 Unspecified asthma, uncomplicated; K59.00 Constipation, unspecified; Z79.899 Other long term (current) drug therapy; Z88.8 Allergy status to other drugs, medicaments and biological substances; Z68.41 Body mass index [BMI] 40.0-44.9, adult
CPT/HCPCS: 80053; 80164; 80178; 80307; 85025; 99285; G0480; J2794

== ENCOUNTER 2022-09-12 10:56 | Emergency (ER) | payer MEDICAID, OTHER ==
[~2022-09-12] VITALS: Ht 175.3 cm; Wt 137.9 kg
[~2022-09-12 10:56] MED LIST changes: -BENZ1TAB84 PO; -BENZ2TAB71 PO; -DIVA-112 PO; -DOCU-350 PO; -GUAN1TAB2 PO; -HALO5TAB23 PO; -LITH300C3 PO; -RISPC50 IM; -TRAZ-257 PO
[2022-09-12] MEDS ORDERED: LITH300C3 PO (10:59)
[2022-09-12] MEDS ORDERED: BENZ1TAB84 PO (10:59)
[2022-09-12] MEDS ORDERED: DIVA-112 PO (10:59)
[2022-09-12 11:03] VITALS: TEMP 98.2
[2022-09-12 11:14] VITALS: BP 132/79; PULSE 87; RESP 16
[2022-09-12 11:45] LABS: BASOPHILS % (AUTO) 0.4 % (0.0-2.0); EOSINOPHILS % (AUTO) 1.5 % (1.0-6.0); HEMATOCRIT 40.9 % (41-53); LYMPHOCYTES # (AUTO) 3.7 K/uL (1.0-4.8); LYMPHOCYTES % (AUTO) 48.6 % (22.0-44.0); MEAN CORPUSCULAR HGB CONC 31.7 G/dL (31.0-37.0); MEAN CORPUSCULAR VOLUME 95 fL (80-100); MONOCYTES # (AUTO) 0.5 K/uL (0.1-1.0); MONOCYTES % (AUTO) 6.3 % (2.0-9.0); NEUTROPHILS # (AUTO) 3.3 K/uL (1.8-7.7); NEUTROPHILS % (AUTO) 43.2 % (40.0-70.0); PLATELET COUNT (AUTO) 226 K/uL (150-450); RED BLOOD CELL COUNT(AUTO) 4.32 MIL/uL (4.50-5.90); RED CELL DISTRIBUTION WIDTH 13.7 % (11.5-14.5)
[2022-09-12 11:57] LABS: ANION GAP 9 mmol/L (8-16); CALCIUM, TOTAL 9.4 mg/dL (8.8-10.5); CARBON DIOXIDE 30 mmol/L (22-29); CHLORIDE 101 mmol/L (98-107); CREATININE 0.87 mg/dL (0.60-1.30); GLOMERULAR FILTR. RATE CALC > 60 mL/min (>60); GLUCOSE,RANDOM 100 mg/dL (70-110); POTASSIUM 3.8 mmol/L (3.5-5.1); SODIUM SERUM 140 mmol/L (136-145)
[2022-09-12 12:06] LABS: ALANINE AMINOTRANSFERASE 15 U/L (12-78); ALBUMIN 3.9 g/dL (3.4-5.0); ALKALINE PHOSPHATASE 45 U/L (46-116); ASPARTATE AMINOTRANSFERASE 8 U/L (15-37); BILIRUBIN,TOTAL 0.3 mg/dL (0.1-1.0); TOTAL PROTEIN, SERUM 8.3 g/dL (6.4-8.2)
[2022-09-12] MEDS ORDERED: GUAN1TAB2 PO (14:25)
[2022-09-12] MEDS ORDERED: RISPC50 IM (14:25)
[2022-09-12] MEDS ORDERED: DOCU-352 PO (14:25)
[2022-09-12] MEDS ORDERED: TRAZ-257 PO (14:25)
[2022-09-12] MEDS ORDERED: HALO5TAB2 PO (14:25)
[2022-09-12] MEDS ORDERED: CLON1TAB12 PO (14:25)
== END 2022-09-12 13:17 | disposition home or self-care (01) ==
LOC: EMS 10:58
DX: F25.0 Schizoaffective disorder, bipolar type (principal); Z88.8 Allergy status to other drugs, medicaments and biological substances
CPT/HCPCS: 99283; 80053; 85025; G0480

== ENCOUNTER 2022-09-12 13:47 | Inpatient (IN) | payer MEDICAID, OTHER ==
[~2022-09-12] VITALS: Ht 175.3 cm; Wt 139.8 kg
[~2022-09-12 13:47] MED LIST changes: +BENZ1TAB84 PO; +DIVA-112 PO; +LITH300C3 PO
[2022-09-12] MEDS ORDERED: HALO5TAB2 PO (14:25)
[2022-09-12] MEDS ORDERED: DOCU-352 PO (14:25)
[2022-09-12] MEDS ORDERED: RISPC50 IM (14:25)
[2022-09-12] MEDS ORDERED: CLON1TAB12 PO (14:25)
[2022-09-12] MEDS ORDERED: TRAZ-257 PO (14:25)
[2022-09-12] MEDS ORDERED: GUAN1TAB2 PO (14:25)
[2022-09-12 15:32] LABS: BASOPHILS % (AUTO) 0.5 % (0.0-2.0); EOSINOPHILS % (AUTO) 1.3 % (1.0-6.0); HEMATOCRIT 40.1 % (41-53); LYMPHOCYTES # (AUTO) 3.4 K/uL (1.0-4.8); LYMPHOCYTES % (AUTO) 42.1 % (22.0-44.0); MEAN CORPUSCULAR HEMOGLOBIN 30.7 pg (26.0-34.0); MEAN CORPUSCULAR HGB CONC 32.3 G/dL (31.0-37.0); MEAN CORPUSCULAR VOLUME 95 fL (80-100); MONOCYTES # (AUTO) 0.6 K/uL (0.1-1.0); MONOCYTES % (AUTO) 7.2 % (2.0-9.0); NEUTROPHILS # (AUTO) 3.9 K/uL (1.8-7.7); NEUTROPHILS % (AUTO) 48.9 % (40.0-70.0); PLATELET COUNT (AUTO) 230 K/uL (150-450); RED BLOOD CELL COUNT(AUTO) 4.22 MIL/uL (4.50-5.90); RED CELL DISTRIBUTION WIDTH 13.4 % (11.5-14.5)
[2022-09-12 15:33] LABS: COVID AG,FIA SOURCE NASOPHARYNGEAL
[2022-09-12 15:39] LABS: ANION GAP 10 mmol/L (8-16); CALCIUM, TOTAL 9.6 mg/dL (8.8-10.5); CARBON DIOXIDE 30 mmol/L (22-29); CHLORIDE 101 mmol/L (98-107); CREATININE 0.97 mg/dL (0.60-1.30); GLOMERULAR FILTR. RATE CALC > 60 mL/min (>60); GLUCOSE,RANDOM 110 mg/dL (70-110); SODIUM SERUM 141 mmol/L (136-145)
[2022-09-12 15:44] LABS: APPEARANCE,URINE CLEAR (CLEAR); BILIRUBIN,URINE NEGATIVE (NEGATIVE); GLUCOSE, URINE (UA) NEGATIVE (NEGATIVE); KETONES,URINE NEGATIVE (NEGATIVE); LEUKOCYTE ESTERASE ,URINE NEGATIVE (NEGATIVE); NITRATE,URINE NEGATIVE (NEGATIVE); OCCULT BLOOD,URINE NEGATIVE (NEGATIVE); PROTEIN,URINE TRACE mg/dL (NEGATIVE); SPECIFIC GRAVITIY, URINE 1.016 (1.003-1.030); UROBILINOGEN,URINE <=1.0 mg/dL (<=1.0)
[2022-09-12 15:45] LABS: ALANINE AMINOTRANSFERASE 15 U/L (12-78); ALBUMIN 3.9 g/dL (3.4-5.0); ALKALINE PHOSPHATASE 47 U/L (46-116); ASPARTATE AMINOTRANSFERASE 8 U/L (15-37); BILIRUBIN,TOTAL 0.2 mg/dL (0.1-1.0); TOTAL PROTEIN, SERUM 8.3 g/dL (6.4-8.2)
[2022-09-12 15:47] LABS: AMPHET/METH SCREEN,URINE NEGATIVE (NEGATIVE); BARBITURATE SCREEN, URINE NEGATIVE (NEGATIVE); BENZODIAZEPINES SCREEN,URINE NEGATIVE (NEGATIVE); CANNABINOID SCREEN,URINE NEGATIVE (NEGATIVE); COCAINE SCREEN,URINE NEGATIVE (NEGATIVE); METHADONE SCREEN, URINE NEGATIVE (NEGATIVE); OPIATE SCREEN,URINE NEGATIVE (NEGATIVE); PHENCYCLIDINE SCREEN,URINE NEGATIVE (NEGATIVE)
[2022-09-12 18:09] VITALS: BP 132/89; PULSE 79; RESP 18; TEMP 98.4; O2SAT 98
[2022-09-12] MEDS: ZOLPIDEM TARTRATE 10 MG TABLET PO PRN (20:08)
[2022-09-12 20:11] VITALS: BP 140/82; PULSE 86; RESP 18; TEMP 98.2; O2SAT 98
[2022-09-13] MEDS ORDERED: ONDANSETRON HCL 4 MG TABLET PO PRN (05:15)
[2022-09-13] MEDS ORDERED: OMEPRAZOLE 20 MG CAPSULE PO PRN (05:15)
[2022-09-13] MEDS ORDERED: MAGNESIUM HYDROXIDE SUSPENSION 30 ML UDCUP PO PRN (05:15)
[2022-09-13] MEDS ORDERED: DOCUSATE SODIUM 100 MG CAPSULE PO PRN (05:15)
[2022-09-13] MEDS ORDERED: CloNIDine HCL 0.1 MG TABLET PO PRN (05:15)
[2022-09-13] MEDS ORDERED: ACETAMINOPHEN 325 MG TABLET PO PRN (05:15)
[2022-09-13] MEDS ORDERED: BENZOCAINE/MENTHOL LOZENGE PO PRN (05:15)
[2022-09-13] MEDS ORDERED: ALBUTEROL SULFATE HFA 90 MCG/PUFF 8 GM INHALER IH PRN (05:15)
[2022-09-13] MEDS ORDERED: BACITRACIN 28 GM OINTMENT TP PRN (05:15)
[2022-09-13] MEDS ORDERED: LOPERAMIDE HCL 2 MG CAPSULE PO PRN (05:15)
[2022-09-13] MEDS ORDERED: PETROLATUM,WHITE 28 GM JELLY TP PRN (05:15)
[2022-09-13] MEDS ORDERED: MAG HYDROX/AL HYDROX/SIMETH ES 30 ML SUSPENSION UDCUP PO PRN (05:15)
[2022-09-13] MEDS ORDERED: IBUPROFEN 600 MG TABLET PO PRN (05:15)
[2022-09-13] MEDS: HALOPERIDOL 5 MG TABLET PO PRN (07:53)
[2022-09-13] MEDS: LORazepam 2 MG TABLET PO PRN (07:53)
[2022-09-13 08:13] VITALS: BP 139/85; PULSE 84; RESP 18; TEMP 98.3; O2SAT 95
[2022-09-13] MEDS ORDERED: RisperiDONE MICROSPHERES 50 MG/2 ML SYRINGE IM ONE (08:45)
[2022-09-13] MEDS: DIVALPROEX SODIUM 500 MG ER TABLET PO SCH ×2 (08:58→16:05)
[2022-09-13] MEDS: ClonazePAM 1 MG TABLET PO SCH ×2 (08:58→16:05)
[2022-09-13] MEDS: BENZTROPINE MESYLATE 1 MG TABLET PO SCH ×2 (08:58→16:05)
[2022-09-13] MEDS: GuanFACINE HCL 1 MG TABLET PO SCH ×2 (08:58→16:04)
[2022-09-13] MEDS: LITHIUM CARBONATE 300 MG CAPSULE PO SCH ×2 (08:58→16:05)
[2022-09-13] MEDS ORDERED: RisperiDONE MICROSPHERES 50 MG/2 ML SYRINGE IM SCH (09:00)
[2022-09-13] MEDS: ZOLPIDEM TARTRATE 10 MG TABLET PO PRN ×2 (19:58→21:17)
[2022-09-13] MEDS: MELATONIN 5 MG TABLET PO SCH (20:04)
[2022-09-13] MEDS: TraZODone HCL 100 MG TABLET PO SCH (20:04)
[2022-09-13 20:16] VITALS: BP 140/82; PULSE 86; RESP 19; TEMP 98.2; O2SAT 98
[2022-09-13] MEDS: RisperiDONE 1 MG TABLET PO SCH (21:13)
[2022-09-14] MEDS: GuanFACINE HCL 1 MG TABLET PO SCH ×2 (08:05→16:09)
[2022-09-14] MEDS: LITHIUM CARBONATE 300 MG CAPSULE PO SCH ×2 (08:05→16:09)
[2022-09-14] MEDS: ClonazePAM 1 MG TABLET PO SCH ×2 (08:05→16:10)
[2022-09-14] MEDS: DIVALPROEX SODIUM 500 MG ER TABLET PO SCH ×2 (08:06→16:10)
[2022-09-14] MEDS: RisperiDONE 1 MG TABLET PO SCH ×2 (08:06→20:02)
[2022-09-14] MEDS: BENZTROPINE MESYLATE 1 MG TABLET PO SCH ×2 (08:06→16:09)
[2022-09-14 08:09] VITALS: BP 145/70; PULSE 85; RESP 18; TEMP 97.6; O2SAT 93
[2022-09-14 08:20] LABS: LITHIUM 0.29 mmol/L (0.60-1.20)
[2022-09-14] MEDS: MELATONIN 5 MG TABLET PO SCH (20:02)
[2022-09-14] MEDS: TraZODone HCL 100 MG TABLET PO SCH (20:02)
[2022-09-14 20:11] VITALS: BP 140/84; PULSE 92; RESP 19; TEMP 98.2; O2SAT 98
[2022-09-14] MEDS: ZOLPIDEM TARTRATE 10 MG TABLET PO PRN (21:16)
[2022-09-15] MEDS: ClonazePAM 1 MG TABLET PO SCH ×2 (08:07→17:17)
[2022-09-15] MEDS: GuanFACINE HCL 1 MG TABLET PO SCH ×2 (08:07→17:17)
[2022-09-15] MEDS: RisperiDONE 1 MG TABLET PO SCH ×2 (08:07→20:33)
[2022-09-15] MEDS: LITHIUM CARBONATE 300 MG CAPSULE PO SCH ×2 (08:07→17:17)
[2022-09-15] MEDS: BENZTROPINE MESYLATE 1 MG TABLET PO SCH ×2 (08:07→17:18)
[2022-09-15] MEDS: DIVALPROEX SODIUM 500 MG ER TABLET PO SCH ×2 (08:07→17:17)
[2022-09-15 08:20] VITALS: BP 133/98; PULSE 100; RESP 18; TEMP 98.2; O2SAT 98
[2022-09-15 20:21] VITALS: BP 144/82; PULSE 98; RESP 18; TEMP 98.2; O2SAT 96
[2022-09-15] MEDS: TraZODone HCL 100 MG TABLET PO SCH (20:33)
[2022-09-15] MEDS: MELATONIN 5 MG TABLET PO SCH (20:33)
[2022-09-15] MEDS: LORazepam 2 MG TABLET PO PRN (22:50)
[2022-09-15] MEDS: ZOLPIDEM TARTRATE 10 MG TABLET PO PRN (22:50)
[2022-09-16] MEDS: LITHIUM CARBONATE 300 MG CAPSULE PO SCH ×2 (08:17→17:05)
[2022-09-16] MEDS: BENZTROPINE MESYLATE 1 MG TABLET PO SCH ×2 (08:17→17:05)
[2022-09-16] MEDS: ClonazePAM 1 MG TABLET PO SCH ×2 (08:17→17:05)
[2022-09-16] MEDS: RisperiDONE 1 MG TABLET PO SCH ×2 (08:17→20:05)
[2022-09-16] MEDS: GuanFACINE HCL 1 MG TABLET PO SCH ×2 (08:17→17:05)
[2022-09-16] MEDS: DIVALPROEX SODIUM 500 MG ER TABLET PO SCH ×2 (08:18→17:05)
[2022-09-16] MEDS: LORazepam 2 MG TABLET PO PRN ×2 (08:18→19:38)
[2022-09-16 08:25] VITALS: BP 138/92; PULSE 90; RESP 20; TEMP 97; O2SAT 99
[2022-09-16] MEDS: MELATONIN 5 MG TABLET PO SCH (20:05)
[2022-09-16] MEDS: TraZODone HCL 100 MG TABLET PO SCH (20:05)
[2022-09-16 20:35] VITALS: BP 126/81; PULSE 93; RESP 19; TEMP 98.4; O2SAT 96
[2022-09-16] MEDS: ZOLPIDEM TARTRATE 10 MG TABLET PO PRN (22:00)
[2022-09-17] MEDS: BENZTROPINE MESYLATE 1 MG TABLET PO SCH ×2 (08:13→16:20)
[2022-09-17] MEDS: ClonazePAM 1 MG TABLET PO SCH ×2 (08:13→16:20)
[2022-09-17] MEDS: GuanFACINE HCL 1 MG TABLET PO SCH ×2 (08:13→16:20)
[2022-09-17] MEDS: LITHIUM CARBONATE 300 MG CAPSULE PO SCH ×2 (08:13→16:19)
[2022-09-17] MEDS: RisperiDONE 1 MG TABLET PO SCH ×2 (08:13→20:52)
[2022-09-17] MEDS: DIVALPROEX SODIUM 500 MG ER TABLET PO SCH ×2 (08:13→16:20)
[2022-09-17 08:34] VITALS: BP 147/82; PULSE 91; RESP 20; TEMP 98.5; O2SAT 99
[2022-09-17] MEDS: HALOPERIDOL 5 MG TABLET PO PRN (11:32)
[2022-09-17] MEDS: LORazepam 2 MG TABLET PO PRN (11:32)
[2022-09-17 20:12] VITALS: BP 129/92; PULSE 93; RESP 18; TEMP 98.1; O2SAT 98
[2022-09-17] MEDS: MELATONIN 5 MG TABLET PO SCH (20:52)
[2022-09-17] MEDS: TraZODone HCL 100 MG TABLET PO SCH (20:52)
[2022-09-17] MEDS: ZOLPIDEM TARTRATE 10 MG TABLET PO PRN (21:58)
[2022-09-18] MEDS: ClonazePAM 1 MG TABLET PO SCH ×2 (08:08→16:07)
[2022-09-18] MEDS: DIVALPROEX SODIUM 500 MG ER TABLET PO SCH ×2 (08:08→16:07)
[2022-09-18] MEDS: GuanFACINE HCL 1 MG TABLET PO SCH ×2 (08:08→16:07)
[2022-09-18] MEDS: BENZTROPINE MESYLATE 1 MG TABLET PO SCH ×2 (08:08→16:07)
[2022-09-18] MEDS: RisperiDONE 1 MG TABLET PO SCH ×2 (08:08→20:05)
[2022-09-18] MEDS: LITHIUM CARBONATE 300 MG CAPSULE PO SCH ×2 (08:08→16:07)
[2022-09-18 08:12] VITALS: BP 136/89; PULSE 87; RESP 17; TEMP 97.7; O2SAT 97
[2022-09-18] MEDS: HALOPERIDOL 5 MG TABLET PO PRN (12:52)
[2022-09-18] MEDS: LORazepam 2 MG TABLET PO PRN (12:52)
[2022-09-18] MEDS: TraZODone HCL 100 MG TABLET PO SCH (20:05)
[2022-09-18] MEDS: MELATONIN 5 MG TABLET PO SCH (20:07)
[2022-09-18 20:11] VITALS: BP 130/84; PULSE 93; RESP 20; TEMP 97.8; O2SAT 98
[2022-09-19] MEDS: BENZTROPINE MESYLATE 1 MG TABLET PO SCH (08:13)
[2022-09-19] MEDS: ClonazePAM 1 MG TABLET PO SCH (08:13)
[2022-09-19] MEDS: DIVALPROEX SODIUM 500 MG ER TABLET PO SCH (08:13)
[2022-09-19] MEDS: GuanFACINE HCL 1 MG TABLET PO SCH (08:13)
[2022-09-19] MEDS: RisperiDONE 1 MG TABLET PO SCH (08:13)
[2022-09-19] MEDS: LITHIUM CARBONATE 300 MG CAPSULE PO SCH (08:13)
[2022-09-19 08:57] VITALS: BP 135/84; PULSE 100; RESP 18; TEMP 97.2; O2SAT 91
[2022-09-19] MEDS: LORazepam 2 MG TABLET PO PRN (08:57)
[2022-09-19] MEDS: HALOPERIDOL 5 MG TABLET PO PRN (08:57)
[2022-09-19] MEDS ORDERED: GUAN1TAB22 PO (13:17)
[2022-09-19] MEDS ORDERED: DIVA500T53 PO (13:19)
[2022-09-19] MEDS ORDERED: MELA5TAB40 PO (13:20)
[2022-09-19] MEDS ORDERED: RISP1TAB98 PO (13:20)
[2022-09-27] MEDS ORDERED: RisperiDONE MICROSPHERES 50 MG/2 ML SYRINGE IM SCH (09:00)
== END 2022-09-19 16:08 | disposition home or self-care (01) | DRG 750 ==
LOC: EMS 14:06 → B3A 16:00
PROVIDERS: ADMIT Psychiatry & Neurology Psychiatry; ATTEND Psychiatry & Neurology Psychiatry
DX: F25.1 Schizoaffective disorder, depressive type (principal); F79 Unspecified intellectual disabilities; E66.01 Morbid (severe) obesity due to excess calories; F31.9 Bipolar disorder, unspecified; G47.00 Insomnia, unspecified; F41.9 Anxiety disorder, unspecified; Z20.822 Contact with and (suspected) exposure to COVID-19; J45.909 Unspecified asthma, uncomplicated; K59.00 Constipation, unspecified; Z79.899 Other long term (current) drug therapy; Z88.8 Allergy status to other drugs, medicaments and biological substances; Z68.42 Body mass index [BMI] 45.0-49.9, adult
CPT/HCPCS: 80053; 80164; 80178; 80307; 81003; 85025; 99285; G0480; J2794; Q9967

== ENCOUNTER 2023-01-16 14:11 | Inpatient (IN) | payer MEDICAID, OTHER ==
[~2023-01-16] VITALS: Ht 175.3 cm; Wt 132.0 kg
[~2023-01-16 14:11] MED LIST changes: -CLON-595 PO; +CLON1TAB12 PO; -DIVA-112 PO; +DIVA500T53 PO; +GUAN1TAB22 PO; +MELA5TAB40 PO; +RISP1TAB98 PO; +TRAZ-257 PO
[2023-01-16 15:07] LABS: COVID AG,FIA SOURCE NASAL SWAB
[2023-01-16 15:22] LABS: APPEARANCE,URINE CLEAR (CLEAR); BILIRUBIN,URINE NEGATIVE (NEGATIVE); COLOR,URINE LIGHT YELLOW (YELLOW); GLUCOSE, URINE (UA) NEGATIVE (NEGATIVE); KETONES,URINE NEGATIVE (NEGATIVE); LEUKOCYTE ESTERASE ,URINE NEGATIVE (NEGATIVE); NITRATE,URINE NEGATIVE (NEGATIVE); OCCULT BLOOD,URINE NEGATIVE (NEGATIVE); PROTEIN,URINE TRACE mg/dL (NEGATIVE); UROBILINOGEN,URINE <=1.0 mg/dL (<=1.0)
[2023-01-16 15:29] LABS: ALCOHOL, URINE DRUG SCREEN NEGATIVE (NEGATIVE); AMPHET/METH SCREEN,URINE NEGATIVE (NEGATIVE); BARBITURATE SCREEN, URINE NEGATIVE (NEGATIVE); BENZODIAZEPINES SCREEN,URINE NEGATIVE (NEGATIVE); CANNABINOID SCREEN,URINE NEGATIVE (NEGATIVE); COCAINE SCREEN,URINE NEGATIVE (NEGATIVE); METHADONE SCREEN, URINE NEGATIVE (NEGATIVE); OPIATE SCREEN,URINE NEGATIVE (NEGATIVE); PHENCYCLIDINE SCREEN,URINE NEGATIVE (NEGATIVE)
[2023-01-16 15:32] LABS: BASOPHILS % (AUTO) 0.7 % (0.0-2.0); EOSINOPHILS % (AUTO) 1.7 % (1.0-6.0); HEMATOCRIT 39.1 % (41-53); HEMOGLOBIN 12.8 g/dL (13.5-17.5); LYMPHOCYTES # (AUTO) 2.8 K/uL (1.0-4.8); LYMPHOCYTES % (AUTO) 42.5 % (22.0-44.0); MEAN CORPUSCULAR HEMOGLOBIN 30.8 pg (26.0-34.0); MEAN CORPUSCULAR HGB CONC 32.6 G/dL (31.0-37.0); MEAN CORPUSCULAR VOLUME 95 fL (80-100); MONOCYTES # (AUTO) 0.5 K/uL (0.1-1.0); NEUTROPHILS # (AUTO) 3.2 K/uL (1.8-7.7); NEUTROPHILS % (AUTO) 48.1 % (40.0-70.0); PLATELET COUNT (AUTO) 178 K/uL (150-450); RED BLOOD CELL COUNT(AUTO) 4.14 MIL/uL (4.50-5.90); RED CELL DISTRIBUTION WIDTH 13.3 % (11.5-14.5); WHITE BLOOD COUNT (AUTO) 6.7 K/uL (4.5-11.0)
[2023-01-16 15:39] LABS: SARS-COV2 (COVID) ANTIGEN,FIA Negative (Negative)
[2023-01-16 15:44] LABS: ANION GAP 5 mmol/L (8-16); CALCIUM, TOTAL 9.5 mg/dL (8.8-10.5); CARBON DIOXIDE 30 mmol/L (22-29); CHLORIDE 104 mmol/L (98-107); CREATININE 0.85 mg/dL (0.60-1.30); GLOMERULAR FILTR. RATE CALC > 60 mL/min (>60); GLUCOSE,RANDOM 87 mg/dL (70-110); LITHIUM 0.54 mmol/L (0.60-1.20); POTASSIUM 3.9 mmol/L (3.5-5.1); SODIUM SERUM 139 mmol/L (136-145); UREA NITROGEN, BLOOD 10 mg/dL (7-18)
[2023-01-16 15:46] LABS: ALCOHOL, BLOOD (SERUM) < 3 mg/dL (0-10)
[2023-01-16 15:49] LABS: ALANINE AMINOTRANSFERASE 22 U/L (12-78); ALBUMIN 3.9 g/dL (3.4-5.0); ALKALINE PHOSPHATASE 47 U/L (46-116); ASPARTATE AMINOTRANSFERASE 13 U/L (15-37); BILIRUBIN,TOTAL 0.3 mg/dL (0.1-1.0); TOTAL PROTEIN, SERUM 8.6 g/dL (6.4-8.2)
[2023-01-16] MEDS: HALOPERIDOL 5 MG TABLET PO PRN (19:37)
[2023-01-16] MEDS: LORazepam 2 MG TABLET PO PRN (19:37)
[2023-01-16 19:42] VITALS: BP 126/72; PULSE 74; RESP 17; TEMP 97.8; O2SAT 97
[2023-01-16] MEDS: ZOLPIDEM TARTRATE 10 MG TABLET PO PRN (20:35)
[2023-01-16] MEDS: LITHIUM CARBONATE 300 MG CAPSULE PO SCH (22:00)
[2023-01-16] MEDS: BENZTROPINE MESYLATE 2 MG TABLET PO SCH (22:00)
[2023-01-16] MEDS: TraZODone HCL 100 MG TABLET PO SCH (22:00)
[2023-01-16] MEDS: DIVALPROEX SODIUM 500 MG DR TABLET PO SCH (22:00)
[2023-01-17] MEDS ORDERED: ALBUTEROL SULFATE HFA 90 MCG/PUFF 8 GM INHALER IH PRN (07:45)
[2023-01-17] MEDS ORDERED: BENZOCAINE/MENTHOL LOZENGE PO PRN (07:45)
[2023-01-17] MEDS ORDERED: LOPERAMIDE HCL 2 MG CAPSULE PO PRN (07:45)
[2023-01-17] MEDS ORDERED: PETROLATUM,WHITE 28 GM JELLY TP PRN (07:45)
[2023-01-17] MEDS ORDERED: OMEPRAZOLE 20 MG CAPSULE PO PRN (07:45)
[2023-01-17] MEDS ORDERED: CloNIDine HCL 0.1 MG TABLET PO PRN (07:45)
[2023-01-17] MEDS ORDERED: DOCUSATE SODIUM 100 MG CAPSULE PO PRN (07:45)
[2023-01-17] MEDS ORDERED: IBUPROFEN 600 MG TABLET PO PRN (07:45)
[2023-01-17] MEDS ORDERED: BACITRACIN 28 GM OINTMENT TP PRN (07:45)
[2023-01-17] MEDS ORDERED: ACETAMINOPHEN 325 MG TABLET PO PRN (07:45)
[2023-01-17] MEDS ORDERED: MAG HYDROX/ALUMINUM HYD/SIMETH ES 30 ML SUSPENSION UDCUP PO PRN (07:45)
[2023-01-17] MEDS ORDERED: MAGNESIUM HYDROXIDE SUSPENSION 30 ML UDCUP PO PRN (07:45)
[2023-01-17] MEDS: ClonazePAM 1 MG TABLET PO SCH ×2 (08:00→16:15)
[2023-01-17] MEDS: HALOPERIDOL 5 MG TABLET PO PRN ×2 (08:00→13:48)
[2023-01-17] MEDS: LITHIUM CARBONATE 300 MG CAPSULE PO SCH ×2 (08:00→16:15)
[2023-01-17] MEDS: DIVALPROEX SODIUM 500 MG DR TABLET PO SCH ×2 (08:00→16:15)
[2023-01-17 08:26] LABS: HEMOGLOBIN A1C 5.1 % (3.8-5.6)
[2023-01-17 08:47] VITALS: BP 150/109; PULSE 90; RESP 18; TEMP 98; O2SAT 98
[2023-01-17 08:48] LABS: THYROID STIMULATING HORMONE 1.88 uIU/mL (0.36-3.74)
[2023-01-17] MEDS: LORazepam 2 MG TABLET PO PRN ×2 (09:00→13:48)
[2023-01-17] MEDS: TraZODone HCL 100 MG TABLET PO SCH (20:01)
[2023-01-17] MEDS: ZOLPIDEM TARTRATE 10 MG TABLET PO PRN (20:01)
[2023-01-17] MEDS: BENZTROPINE MESYLATE 2 MG TABLET PO SCH (20:01)
[2023-01-17 20:31] VITALS: BP 139/79; PULSE 82; RESP 17; TEMP 98.6; O2SAT 95
[2023-01-18] MEDS: LORazepam 2 MG TABLET PO PRN ×2 (07:45→12:17)
[2023-01-18] MEDS: HALOPERIDOL 5 MG TABLET PO PRN ×2 (07:45→12:17)
[2023-01-18] MEDS: LITHIUM CARBONATE 300 MG CAPSULE PO SCH ×2 (08:15→16:35)
[2023-01-18] MEDS: DIVALPROEX SODIUM 500 MG DR TABLET PO SCH ×2 (08:15→16:17)
[2023-01-18] MEDS: ClonazePAM 1 MG TABLET PO SCH ×2 (08:15→16:35)
[2023-01-18] MEDS ORDERED: RisperiDONE MICROSPHERES 50 MG/2 ML SYRINGE IM ONE (09:00)
[2023-01-18 09:17] VITALS: BP 144/95; PULSE 100; RESP 18; TEMP 97.6; O2SAT 95
[2023-01-18] MEDS: TraZODone HCL 100 MG TABLET PO SCH (20:03)
[2023-01-18] MEDS: BENZTROPINE MESYLATE 2 MG TABLET PO SCH (20:03)
[2023-01-18] MEDS: ZOLPIDEM TARTRATE 10 MG TABLET PO PRN (21:03)
[2023-01-18 22:14] VITALS: BP 148/82; PULSE 96; RESP 16; TEMP 98; O2SAT 97
[2023-01-19] MEDS: HALOPERIDOL 5 MG TABLET PO PRN ×3 (07:44→17:24)
[2023-01-19] MEDS: LORazepam 2 MG TABLET PO PRN ×3 (07:44→17:24)
[2023-01-19] MEDS: DIVALPROEX SODIUM 500 MG DR TABLET PO SCH ×2 (08:03→17:24)
[2023-01-19] MEDS: LITHIUM CARBONATE 300 MG CAPSULE PO SCH ×2 (08:03→17:24)
[2023-01-19] MEDS: ClonazePAM 1 MG TABLET PO SCH ×2 (08:03→17:24)
[2023-01-19 08:35] VITALS: BP 147/96; PULSE 94; RESP 18; TEMP 97.8; O2SAT 96
[2023-01-19] MEDS: BENZTROPINE MESYLATE 2 MG TABLET PO SCH (20:38)
[2023-01-19] MEDS: TraZODone HCL 100 MG TABLET PO SCH (20:39)
[2023-01-19] MEDS: ZOLPIDEM TARTRATE 10 MG TABLET PO PRN (20:39)
[2023-01-19 23:54] VITALS: BP 133/78; PULSE 79; RESP 18; TEMP 98; O2SAT 98
[2023-01-20] MEDS: DIVALPROEX SODIUM 500 MG DR TABLET PO SCH (08:29)
[2023-01-20] MEDS: HALOPERIDOL 5 MG TABLET PO PRN (08:29)
[2023-01-20] MEDS: LORazepam 2 MG TABLET PO PRN (08:29)
[2023-01-20] MEDS: ClonazePAM 1 MG TABLET PO SCH (08:30)
[2023-01-20] MEDS: LITHIUM CARBONATE 300 MG CAPSULE PO SCH (08:30)
[2023-01-20] MEDS ORDERED: BENZ2TAB71 PO (12:11)
== END 2023-01-20 15:25 | disposition home or self-care (01) | DRG 750 ==
LOC: EMS 14:43 → B3A 15:59
PROVIDERS: ADMIT Psychiatry & Neurology Psychiatry; ATTEND Psychiatry & Neurology Psychiatry
DX: F25.1 Schizoaffective disorder, depressive type (principal); E66.01 Morbid (severe) obesity due to excess calories; F41.9 Anxiety disorder, unspecified; J45.909 Unspecified asthma, uncomplicated; Z20.822 Contact with and (suspected) exposure to COVID-19; K59.00 Constipation, unspecified; G47.00 Insomnia, unspecified; Z68.41 Body mass index [BMI] 40.0-44.9, adult; Z88.8 Allergy status to other drugs, medicaments and biological substances; Z79.899 Other long term (current) drug therapy
CPT/HCPCS: 80053; 80164; 80178; 80307; 81003; 83036; 84443; 85025; G0480; J2794